=== PATIENT | female | born 1935 | race African-American/Black ===

== ENCOUNTER 2023-11-02 14:37 | Emergency (ER) | payer OTHER ==
[2023-11-02 17:31] LABS: #Eosinphils 0.1 10x3/uL (0.0-0.5); #Monocytes 0.3 10x3/uL (0.0-1.1); #Neutrophils 1.9 10x3/uL (1.5-8.4); %Basophils 0.6 % (0.0-2.0); %Eosinophils 1.5 % (0.0-6.0); %Monocytes 10.5 % (0.0-10.0); %Neutrophils 59.4 % (40.0-75.0); Hematocrit 30.9 % (34.9-44.5); Hemoglobin 10.5 g/dL (12.0-15.5); Mean Corpuscular Volume 88.3 fl (81.6-98.3); Mean Platelet Volume 11.3 fl (7.4-10.4); Platelet Count 209 10x3/uL (150-450); RBC Distribution Width 20.7 % (11.5-14.5); White Blood Cell (WBC) Count 3.3 10x3/uL (3.5-10.5)
[2023-11-02 17:37] LABS: ALT (SGPT) 7 U/L (8-55); AST (SGOT) 15 U/L (5-34); Alkaline Phosphatase 47 U/L (40-110); Anion Gap 12 mmol/L (10-20); BUN (Urea Nitrogen) 28 mg/dL (9.8-20.1); Bilirubin, Total 0.4 mg/dL (0.2-1.2); Calc. Creatinine Clearance 0 mL/min (70-130); Carbon Dioxide 30 mmol/L (23-31); Chloride 105 mmol/L (98-107); Estimated GFR 39; Globulin 2.9 g/dL (2.4-3.5); Glucose 197 mg/dL (83-110); Potassium 2.8 mmol/L (3.5-5.1); Protein, Total 4.9 g/dL (5.8-8.1); Sodium 144 mmol/L (136-145)
[2023-11-02 17:47] LABS: Troponin I 0.293 ng/mL (< 0.028)
[2023-11-02 18:07] LABS: Bilirubin Neg (Negative); Blood, Urine 250 (Negative); Clarity Cloudy (Clear); Glucose, Urine (Dipstick) 250 mg/dL (Negative); Ketone, Urine Negative (Negative); Leukocyte 500 (Negative); Nitrite Negative (Negative); Protein, Urine (Dipstick) 100 mg/dl (Neg-Trace); Specific Gravity, Urine 1.015 (1.005-1.030); Urobilinogen Normal mg/dL (Less than 2)
[2023-11-02 18:28] LABS: RBC/HPF Greater than 50 HPF (0-3)
[2023-11-02 18:29] LABS: Bacteria/HPF 4+ HPF (None Seen); CAUTI Indications for Culture Pelvic or flank pain; Renal Epithelial 0-3 HPF (None Seen); Squamous Epithelial 0-3 HPF (0-3); WBC/HPF Greater than 50 HPF (0-3)
[2023-11-02 18:30] LABS: Other Casts 0-3 MIXED CASTS LPF (None Seen); White Blood Cell Cast 0-3 LPF (None Seen)
[2023-11-02 18:31] LABS: Calcium Oxalate Crystals 1+ HPF (None Seen); Urine Culture Reflex Yes Yes
[2023-11-02] MEDS ORDERED: Potassium Chloride 20 MEQ TAB ONE (18:38)
[2023-11-02] MEDS ORDERED: Potassium Bicarbonate/Cit Ac 20 MEQ TAB ONE (18:44)
[2023-11-02] MEDS ORDERED: Ondansetron PF 4 MG/2 ML Vial ONE (19:20)
== END 2023-11-02 22:06 | disposition home or self-care (01) ==
LOC: CSHERS 14:37
DX: N39.0 Urinary tract infection, site not specified (principal); E87.6 Hypokalemia; R79.89 Other specified abnormal findings of blood chemistry; E11.22 Type 2 diabetes mellitus with diabetic chronic kidney disease; N18.9 Chronic kidney disease, unspecified
CPT/HCPCS: 80053; 81001; 84484; 85025; 87077; 87086; 87186; 93005; 96374; J2405